=== PATIENT | male | born 1980 | race African-American/Black ===

== ENCOUNTER → 2024-02-23 14:09 | Outpatient (REF) | payer BC, SELFPAY | LOC: RAD 14:09 | PROVIDERS: ATTENDING PHYSICIAN Physician Assistant Medical; FAMILY PHYSICIAN Nurse Practitioner Family | DX: J45.31 Mild persistent asthma with (acute) exacerbation (principal); J06.9 Acute upper respiratory infection, unspecified; R05.9 Cough, unspecified | CPT/HCPCS: 71046 ==